=== PATIENT | male | born 1960 ===

== ENCOUNTER 2017-08-19 08:24 | Day surgery (SDC) | payer SELFPAY ==
[2017-08-19] MEDS ORDERED: Lactated Ringer's 500 ML IV ONE (10:07)
[2017-08-19] MEDS ORDERED: Midazolam 2 MG/2 ML VIAL ONE (10:40)
[2017-08-19] MEDS ORDERED: Propofol 10 mg/ml Inj (20 ML) ONE (10:41)
[2017-08-19 11:21] VITALS: BP 115/85; PULSE 71; RESP 17; TEMP 97; O2SAT 100
== END 2017-08-19 11:29 | disposition home or self-care (01) ==
LOC: H.ENDO 08:24
PROVIDERS: ATTEND Internal Medicine Gastroenterology
DX: Z12.11 Encounter for screening for malignant neoplasm of colon (principal); E11.9 Type 2 diabetes mellitus without complications; E03.9 Hypothyroidism, unspecified; E78.5 Hyperlipidemia, unspecified; I10 Essential (primary) hypertension; K64.8 Other hemorrhoids
CPT/HCPCS: 45378; J2250; J2704; J7120

== ENCOUNTER 2018-04-12 10:16 | Inpatient (IN) | payer SELFPAY ==
[2018-04-12 10:44] VITALS: BMI 26.9
[2018-04-12] MEDS ORDERED: Sodium Chloride 0.9% 1,000 ML IV STA (13:08)
[2018-04-12] MEDS ORDERED: Famotidine 20mg/50ml Premix IVPB STA (13:08)
[2018-04-12] MEDS ORDERED: Famotidine 20mg/50ml 20 MG/50 ML BAG IVPB ONE (13:25)
[2018-04-12] MEDS ORDERED: Dextrose 50% SYRINGE Inj (50 ml) ONE (13:30)
[2018-04-12 14:07] LABS: BASO % 0.3 % (0.0-2.0); EOS # 0.1 K/uL (0.0-0.7); HEMOGLOBIN 16.9 g/dL (12.0-18.0); LYMPH # 1.2 K/uL (1.0-4.3); LYMPH % 20.3 % (20.0-40.0); MEAN CELL VOLUME 85.2 fl (80.0-94.0); MEAN CORPUSCULAR HEMOGLOBIN 29.8 pg (27.0-31.0); MEAN PLATELET VOLUME 7.6 fl (7.2-11.7); NEUT # 3.8 K/uL (1.8-7.0); NEUT % 62.4 % (50.0-75.0); NRBC % 0.2 % (0.0-0.0); RBC 5.68 Mil/uL (4.40-5.90)
[2018-04-12 14:11] LABS: PARTIAL THROMBOPLASTIN TIME 25.1 Seconds (25.6-37.1); PROTHROMBIN TIME 11.6 Seconds (9.8-13.1)
[2018-04-12 14:14] LABS: ALB/GLOB RATIO 1.1 (1.0-2.1); ALBUMIN 4.4 g/dL (3.5-5.0); ALT/SGPT 47 U/L (21-72); AST/SGOT 35 U/L (17-59); BLOOD UREA NITROGEN 16 mg/dl (9-20); CALCIUM 9.4 mg/dL (8.4-10.2); GFR AFRICAN-AMERICAN > 60; GFR NON-AFRICAN AMERICAN > 60; LIPASE 81 U/L (23-300)
[2018-04-12 14:57] LABS: URINE BILIRUBIN NEGATIVE (NEGATIVE); URINE BLOOD NEGATIVE (NEGATIVE); URINE CLARITY SLIGHTY-CLOUDY (Clear); URINE COLOR YELLOW (YELLOW); URINE GLUCOSE (UA) NEG (Normal); URINE HYALINE CAST >20 /hpf (0-2); URINE LEUKOCYTE ESTERASE NEG Leu/uL (Negative); URINE PROTEIN 30 mg/dL (NEGATIVE); URINE UROBILINOGEN 0.2-1.0 mg/dL (0.2-1.0)
[2018-04-12] MEDS ORDERED: Iohexol 300 100 ML IJ ONE (16:07)
[2018-04-12] MEDS ORDERED: Sodium Chloride 0.9% 50 ML IV ONE (16:07)
--- NOTE | 2018-04-12 16:28 | ED PDOC ---
HPI:Nausea, Vomiting, Diarrhea Time Seen by Provider: 04/12/18 12:47 Chief Complaint (Nursing): GI Problem Chief Complaint (Provider): Abdominal Pain History Per: Patient History/Exam Limitations: no limitations Onset/Duration Of Symptoms: Days (x3 days) Current Symptoms Are (Timing): Still Present Have you had recent travel within the past 21 days to any of the following countries: [place], [place], [place] or [place]?: Yes Context: Travel Associated Symptoms: Vomiting, Diarrhea. denies: Fever, Chest Pain Additional Complaint(s): 57 y/o male with a history of diabetes presents to the ED for abdominal pain. Patient states he recently returned from a trip in [facility]. While in [facility] patient had GI issues including vomiting and diarrhea for 4 days which cleared up on it's own. He states 3 days ago the symptoms returned prompting ED visit associated with mild upper abdominal pain. Denies any fever, chest pain, or SOB. PMD: none provided Past Medical History Reviewed: Historical Data, Nursing Documentation, Vital Signs Vital Signs: Last Vital Signs Temp 98 F 04/12/18 10:42 Pulse 107 H 04/12/18 10:42 Resp BP 103/72 04/12/18 10:42 Pulse Ox 98 04/12/18 10:42 - Medical History PMH: Diabetes (controlled type II insulin dependant), Hypothyroidism - Surgical History Surgical History: No Surg Hx - Family History Family History: States: No Known Family Hx - Social History Current smoker - smoking cessation education provided: No Ex-Smoker (has not smoked in the last 12 months): No Alcohol: None Drugs: Denies - Home Medications Home Medications: Ambulatory Orders Medication Instructions Recorded Unobtainable 08/19/17 - Allergies Allergies/Adverse Reactions: Allergies Allergy/AdvReac Type Severity Reaction Status Date / Time No Known Allergies Allergy Verified 08/19/17 10:04 Review of Systems ROS Statement: Except As Marked, All Systems Reviewed And Found Negative Constitutional: Negative for: Fever Cardiovascular: Negative for: Chest Pain Respiratory: Negative for: Shortness of Breath Gastrointestinal: Positive for: Vomiting, Abdominal Pain, Diarrhea Physical Exam - Reviewed Nursing Documentation Reviewed: Yes Vital Signs Reviewed: Yes - Physical Exam Appears: Positive for: Non-toxic, No Acute Distress Head Exam: Positive for: ATRAUMATIC, NORMAL INSPECTION, NORMOCEPHALIC Skin: Positive for: Normal Color Eye Exam: Positive for: EOMI, Normal appearance, PERRL Neck: Positive for: Normal Cardiovascular/Chest: Positive for: Regular Rate, Rhythm. Negative for: Murmur Respiratory: Positive for: Normal Breath Sounds. Negative for: Respiratory Distress Gastrointestinal/Abdominal: Positive for: Normal Exam, Soft, Tenderness ( epigastric area). Negative for: Guarding, Rebound Neurologic/Psych: Positive for: Alert, Oriented (x3) - Laboratory Results Result Diagrams: 04/12/18 13:50 04/12/18 13:50 - ECG O2 Sat by Pulse Oximetry: 98 (RA) Pulse Ox Interpretation: Normal Medical Decision Making Medical Decision Making: Time: 10:42 Impression: Gastroenteritis, colitis, or infectious diarrhea Initial Plan: * CAT Scan Abd/Pelvis IV contrast * EKG * UDip * Famotidine 20 mg IVPB * IV Fluids * Zofran 4 mg IV 16:58 Book a senior vice president and chief information officer consult for patient. Scribe Attestation: Documented by Sarah Porras acting as a scribe Viktoria Harp MD. MD Lucia Attestation: All medical record entries made by the Scribe were at my direction and personally dictated by me. I have reviewed the chart and agree that the record accurately reflects my personal performance of the history, physical exam, medical decision making, and the department course for this patient. I have also personally directed, reviewed, and agree with the discharge instructions and disposition. Disposition - Disposition
--- NOTE | 2018-04-12 16:46 | CT ---
PROCEDURE: CT Abdomen and Pelvis with contrast HISTORY: Epigastric pain, v/d COMPARISON: None. TECHNIQUE: CT scan of the abdomen and pelvis was performed after administration of intravenous contrast. Oral contrast was not administered. Coronal and sagittal reformatted images were obtained. Contrast dose: 95 mL Omnipaque 300 Radiation dose: Total exam DLP = 678.82 mGy-cm. This CT exam was performed using one or more of the following dose reduction techniques: Automated exposure control, adjustment of the mA and/or kV according to patient size, and/or use of iterative reconstruction technique. FINDINGS: LOWER THORAX: There is subsegmental atelectasis in the lung bases. LIVER: Normal in size with diffuse fatty infiltration. No gross lesion or ductal dilatation. GALLBLADDER AND BILE DUCTS: No calcified gallstones. PANCREAS: Normal in size with homogeneous enhancement. No gross lesion or ductal dilatation. SPLEEN: Normal in size and appearance. ADRENALS: No discrete nodule. KIDNEYS AND URETERS: Normal in size with homogeneous enhancement. No hydronephrosis. No solid mass. VASCULATURE: No aortic aneurysm. BOWEL: The proximal and distal small bowel loops are normal in caliber. There is mild dilatation of fluid-filled mid small bowel loops with fecalization of small bowel contents. There is also fluid in the colon. No bowel obstruction. APPENDIX: Normal appendix. PERITONEUM: Unremarkable. No free fluid. No free air. LYMPH NODES: No enlarged lymph nodes. BLADDER: Grossly normal in appearance. REPRODUCTIVE: Unremarkable. BONES: No acute fracture. Within normal limits for the patient's age. OTHER FINDINGS: None. IMPRESSION: 1. Mild dilatation of fluid-filled mid small bowel loops with fecalization of small bowel contents which could be related to nonspecific enteritis or partial small bowel obstruction. Follow-up is advised. 2. Fluid in the colon which may represent nonspecific colitis. No bowel obstruction.
[2018-04-12] MEDS ORDERED: metroNIDAZOLE 500mg/100ml NS 100 ML IV STA (16:55)
[2018-04-12] MEDS ORDERED: Ciprofloxacin 400mg/200ml D5W 400 MG/200 ML BAG IV STA (16:55)
--- NOTE | 2018-04-12 17:42 | CP.PCM.CON ---
History of Present Illness - History of Present Illness History of Present Illness: General Surgery Consult Re: pSBO vs gastroenteritis/colitis HPI: 57M presented to ED with epigastric abd pain associated with N/V/D for 3 days. He reports he ate [place] food 3 days ago, in addition, he recently returned from a trip in [facility] 7 days ago and while there, he had nausea, vomiting and diarrhea for 4 days which cleared up on it's own. + Bloating/gas in abdomen. Denies fever, chills, chest pain, SOB, dehydration, hematemesis, melena, hematochezia, dysuria. At time of exam he had no abd pain. PMH: Hypothyroid, DM PSH: Denies SH: No tobacco, EtOH, or drug use FH: Non-contributory All: PCN (Rash as child) Meds: See MAR Review of Systems - Review of Systems All systems: reviewed and no additional remarkable complaints except (as per HPI ) Past Patient History - Past Medical History & Family History Past Medical History?: Yes - Past Social History Alcohol: None Drugs: Denies - CARDIAC Hx Cardiac Disorders: No - ENDOCRINE/METABOLIC Hx Hypothyroidism: Yes - PSYCHIATRIC Hx Substance Use: No - SURGICAL HISTORY Hx Surgeries: Yes - ANESTHESIA Hx Anesthesia: Yes Hx Anesthesia Reactions: No Hx Malignant Hyperthermia: No Meds Allergies/Adverse Reactions: Allergies Allergy/AdvReac Type Severity Reaction Status Date / Time No Known Allergies Allergy Verified 08/19/17 10:04 - Medications Medications: Current Medications Sodium Chloride (Sodium Chloride 0.9%) 1,000 mls @ 125 mls/hr IV .Q8H STA Stop: 04/12/18 21:07 Last Admin: 04/12/18 13:42 Dose: 125 mls/hr Ciprofloxacin (Cipro 400mg/200ml Dsw) 400 mg in 200 mls @ 200 mls/hr IV STAT STA PRN Reason: Protocol Stop: 04/12/18 17:54 Last Admin: 04/12/18 17:17 Dose: 200 mls/hr Metronidazole (Flagyl 500mg/100ml Ns) 100 mls @ 100 mls/hr IV STAT STA PRN Reason: Protocol Stop: 04/12/18 17:54 Physical Exam - Constitutional Appears: Non-toxic, No Acute Distress - Head Exam Head Exam: ATRAUMATIC, NORMOCEPHALIC - Eye Exam Eye Exam: EOMI. absent: Scleral icterus - ENT Exam ENT Exam: Mucous Membranes Dry Additional comments: trachea midline - Neck Exam Neck exam: Positive for: Full Rom. Negative for: Tenderness - Respiratory Exam Respiratory Exam: NORMAL BREATHING PATTERN. absent: Respiratory Distress - Cardiovascular Exam Cardiovascular Exam: Tachycardia, +S1, +S2 - GI/Abdominal Exam GI & Abdominal Exam: Soft. absent: Distended, Firm, Guarding, Rigid, Tenderness - Rectal Exam Rectal Exam: Deferred - Extremities Exam Extremities exam: Positive for: normal capillary refill. Negative for: calf tenderness - Back Exam Back exam: absent: CVA tenderness (L), CVA tenderness (R) - Neurological Exam Neurological exam: Alert, Oriented x3 - Skin Skin Exam: Dry, Warm Results - Vital Signs Recent Vital Signs: Last Vital Signs Temp 98 F 04/12/18 10:42 Pulse 107 H 04/12/18 10:42 Resp BP 103/72 04/12/18 10:42 Pulse Ox 98 04/12/18 17:06 - Labs Result Diagrams: 04/12/18 13:50 04/12/18 13:50 Labs: Laboratory Results - last 24 hr 04/12/18 04/12/18 04/12/18 13:26 13:28 13:50 WBC 6.0 RBC 5.68 Hgb 16.9 D Hct 48.4 MCV 85.2 D MCH 29.8 MCHC 35.0 RDW 14.0 Plt Count 278 MPV 7.6 Neut % (Auto) 62.4 Lymph % (Auto) 20.3 [place] % (Auto) 16.0 H Eos % (Auto) 1.0 Baso % (Auto) 0.3 Neut # (Auto) 3.8 Lymph # (Auto) 1.2 [place] # (Auto) 1.0 H Eos # (Auto) 0.1 Baso # (Auto) 0.0 PT INR APTT Sodium Potassium Chloride Carbon Dioxide Anion Gap BUN Creatinine Est GFR ( Amer) Est GFR (Non-Af Amer) POC Glucose (mg/dL) 47 L 51 L Random Glucose Calcium Total Bilirubin AST ALT Alkaline Phosphatase Total Protein Albumin Globulin Albumin/Globulin Ratio Lipase Urine Color Urine Clarity Urine pH Ur Specific [place] Urine Protein Urine Glucose (UA) Urine Ketones Urine Blood Urine Nitrate Urine Bilirubin Urine Urobilinogen Ur Leukocyte Esterase Urine RBC (Auto) Urine Microscopic WBC Hyaline Casts 04/12/18 04/12/18 04/12/18 13:50 13:50 14:46 WBC RBC Hgb Hct MCV MCH MCHC RDW Plt Count MPV Neut % (Auto) Lymph % (Auto) [place] % (Auto) Eos % (Auto) Baso % (Auto) Neut # (Auto) Lymph # (Auto) [place] # (Auto) Eos # (Auto) Baso # (Auto) PT 11.6 INR 1.0 APTT 25.1 L Sodium 141 Potassium 4.0 Chloride 99 Carbon Dioxide 22 Anion Gap 24 H BUN 16 Creatinine 0.8 Est GFR ( Amer) > 60 Est GFR (Non-Af Amer) > 60 POC Glucose (mg/dL) Random Glucose 65 L Calcium 9.4 Total Bilirubin 0.5 AST 35 ALT 47 Alkaline Phosphatase 74 Total Protein 8.5 H Albumin 4.4 Globulin 4.1 H Albumin/Globulin Ratio 1.1 Lipase 81 Urine Color Yellow Urine Clarity Slighty-cloudy Urine pH 5.0 Ur Specific [place] 1.020 Urine Protein 30 Urine Glucose (UA) Neg Urine Ketones Negative Urine Blood Negative Urine Nitrate Negative Urine Bilirubin Negative Urine Urobilinogen 0.2-1.0 Ur Leukocyte Esterase Neg Urine RBC (Auto) 4 H Urine Microscopic WBC 3 Hyaline Casts >20 H - Imaging and Cardiology CT scan - abdomen Status: Image reviewed by me, Report reviewed by me Assessment & Plan - Assessment and Plan (Free Text) Assessment: 57M with gastroenteritis Plan: IVF resuscitation Serial abd exams No surgical intervention Diet as tolerated D/W Dr. Cui for Dr. Yohannes Urias PGY4
[2018-04-12] MEDS ORDERED: Glucagon Recombinant 1 mg Inj IM PRN (18:32)
[2018-04-12] MEDS ORDERED: Dextrose 50% SYRINGE Inj (50 ml) IV PRN (18:32)
[2018-04-12] MEDS ORDERED: Pneumococcal 23-Valent Vaccine IM ONE (19:58)
--- NOTE | 2018-04-12 20:33 | CP.PCM.HP ---
History of Present Illness - History of Present Illness History of Present Illness: 57 YO M w/ PMH of DM, hypothyroidism has been having epigastric pain with nausea and diarrhea over the last 4 days. Patient has had nausea but did not vomit. Symptoms all began after he had [place] food 4 days ago. Has been having 4-5 episodes of non bloody diarrhea a day. States he has has decreased appetite, has only had soup today. Patient also just returned from [facility] 7 days ago where he had similar symptoms and had resolved in 4 days. Denies any fever, chills, chest pain, SOB. PMH: DM, Hypothyroidism PSH: None Allergy: Penicillin (Rash) FH: DM SH: Denies smoking or illicit drug use FULL CODE Present on Admission - Present on Admission Any Indicators Present on Admission: Yes History of Uncontrolled Diabetes: Yes Past Patient History - Past Medical History & Family History Past Medical History?: Yes - Past Social History Smoking Status: Never Smoked - CARDIAC Hx Cardiac Disorders: No - ENDOCRINE/METABOLIC Hx Diabetes Mellitus Type 2: Yes Hx Hypothyroidism: Yes - MUSCULOSKELETAL/RHEUMATOLOGICAL Hx Falls: No - PSYCHIATRIC Hx Substance Use: No - SURGICAL HISTORY Hx Surgeries: Yes - ANESTHESIA Hx Anesthesia: Yes Hx Anesthesia Reactions: No Hx Malignant Hyperthermia: No Meds Allergies/Adverse Reactions: Allergies Allergy/AdvReac Type Severity Reaction Status Date / Time Pencillin Allergy RASH Uncoded 04/12/18 22:16 Physical Exam - Constitutional Appears: No Acute Distress - Head Exam Head Exam: NORMAL INSPECTION - Eye Exam Eye Exam: Normal appearance Pupil Exam: NORMAL ACCOMODATION - ENT Exam ENT Exam: Mucous Membranes Moist, Normal Exam - Respiratory Exam Respiratory Exam: Clear to Auscultation Bilateral, NORMAL BREATHING PATTERN. absent: Rhonchi, Wheezes - Cardiovascular Exam Cardiovascular Exam: REGULAR RHYTHM, +S1, +S2 - GI/Abdominal Exam GI & Abdominal Exam: Normal Bowel Sounds, Soft. absent: Tenderness - Extremities Exam Extremities exam: Negative for: calf tenderness - Neurological Exam Neurological exam: Alert, CN II-XII Intact, Oriented x3 - Skin Skin Exam: Normal Color, Warm Results - Vital Signs Recent Vital Signs: Last Vital Signs Temp 98.3 F 04/12/18 18:47 Pulse 71 04/12/18 18:47 Resp 14 04/12/18 19:47 BP 133/84 04/12/18 18:47 Pulse Ox 99 04/12/18 18:47 - Labs Result Diagrams: 04/12/18 13:50 04/12/18 13:50 Labs: Laboratory Results - last 24 hr 04/12/18 04/12/18 04/12/18 13:26 13:28 13:50 WBC 6.0 RBC 5.68 Hgb 16.9 D Hct 48.4 MCV 85.2 D MCH 29.8 MCHC 35.0 RDW 14.0 Plt Count 278 MPV 7.6 Neut % (Auto) 62.4 Lymph % (Auto) 20.3 [place] % (Auto) 16.0 H Eos % (Auto) 1.0 Baso % (Auto) 0.3 Neut # (Auto) 3.8 Lymph # (Auto) 1.2 [place] # (Auto) 1.0 H Eos # (Auto) 0.1 Baso # (Auto) 0.0 PT INR APTT Sodium Potassium Chloride Carbon Dioxide Anion Gap BUN Creatinine Est GFR ( Amer) Est GFR (Non-Af Amer) POC Glucose (mg/dL) 47 L 51 L Random Glucose Calcium Total Bilirubin AST ALT Alkaline Phosphatase Total Protein Albumin Globulin Albumin/Globulin Ratio Lipase Urine Color Urine Clarity Urine pH Ur Specific [place] Urine Protein Urine Glucose (UA) Urine Ketones Urine Blood Urine Nitrate Urine Bilirubin Urine Urobilinogen Ur Leukocyte Esterase Urine RBC (Auto) Urine Microscopic WBC Hyaline Casts 04/12/18 04/12/18 04/12/18 13:50 13:50 14:46 WBC RBC Hgb Hct MCV MCH MCHC RDW Plt Count MPV Neut % (Auto) Lymph % (Auto) [place] % (Auto) Eos % (Auto) Baso % (Auto) Neut # (Auto) Lymph # (Auto) [place] # (Auto) Eos # (Auto) Baso # (Auto) PT 11.6 INR 1.0 APTT 25.1 L Sodium 141 Potassium 4.0 Chloride 99 Carbon Dioxide 22 Anion Gap 24 H BUN 16 Creatinine 0.8 Est GFR ( Amer) > 60 Est GFR (Non-Af Amer) > 60 POC Glucose (mg/dL) Random Glucose 65 L Calcium 9.4 Total Bilirubin 0.5 AST 35 ALT 47 Alkaline Phosphatase 74 Total Protein 8.5 H Albumin 4.4 Globulin 4.1 H Albumin/Globulin Ratio 1.1 Lipase 81 Urine Color Yellow Urine Clarity Slighty-cloudy Urine pH 5.0 Ur Specific [place] 1.020 Urine Protein 30 Urine Glucose (UA) Neg Urine Ketones Negative Urine Blood Negative Urine Nitrate Negative Urine Bilirubin Negative Urine Urobilinogen 0.2-1.0 Ur Leukocyte Esterase Neg Urine RBC (Auto) 4 H Urine Microscopic WBC 3 Hyaline Casts >20 H Assessment & Plan - Assessment and Plan (Free Text) Assessment: 57 YO M w/ PMH of DM, Hypothyroidism presents with abdominal pain, nausea and diarrhea over the past 4 days 1) Abdominal pain most likely secondary to Collitis vs Eneritis - afebrile, no white count - Liquid diet - CT abdomen: Mild dilation of fluid filled mid small bowl loops with fecalization of small bowl contents which could be related to nonspecific enteritis or partial small bowl obstruction. Fluid in colon which may represent nonspecific colitis. - Surgery consulted:Case discussed with surgical training specialist. No surgical intervention indicated at this point: Not suspicious for SBO. - Continue with serial abdominal exams - Flagyl 500 Q8, Cipro 400 Q12 - Adv diet as tolerated 2) DM insulin dependent - Continue with metformin - Medium dose sliding scale - Hold home insulin: Since patient has poor PO intake - HBA1C: 12/2017: HBA1C: 9.9 3) Hypothyroidism: Continue with home meds 4) DVT prophylaxis - Lovenox
[2018-04-12] MEDS: Insulin Regular 100 units/ml SC SCH (22:05)
[2018-04-13] MEDS: metroNIDAZOLE 500mg/100ml NS 100 ML IVPB SCH ×3 (00:02→17:08)
[2018-04-13] MEDS: Levothyroxine 125 MCG TAB PO SCH (05:42)
[2018-04-13] MEDS: Ciprofloxacin 400mg/200ml D5W 400 MG/200 ML BAG IVPB SCH ×2 (08:25→21:22)
[2018-04-13] MEDS: Insulin Regular 100 units/ml SC SCH ×4 (08:29→22:54)
[2018-04-13] MEDS: Enoxaparin 40 mg Syringe SC SCH (08:30)
--- NOTE | 2018-04-13 09:04 | CP.PCM.PN ---
Subjective - Date & Time of Evaluation Date of Evaluation: 04/13/18 Time of Evaluation: 08:15 - Subjective Subjective: 57 y/o M seen and examined by bedside. Pt reports feeling better. Pt reports nausea, vomiting, chills and weakness have improved. Pt still experiencing diarrhea, watery and non-bloody. Pt afebrile and will start liquid diet for breakfast. Objective - Vital Signs/Intake and Output Vital Signs (last 24 hours): Temp Pulse Resp BP Pulse Ox 98.0 F 71 18 108/72 99 04/13/18 08:05 04/13/18 08:05 04/13/18 08:05 04/13/18 08:05 04/13/18 08:05 - Medications Medications: Current Medications Atorvastatin Calcium (Lipitor) 20 mg PO HS [facility] Last Admin: 04/12/18 21:22 Dose: 20 mg Dextrose (Dextrose 50% Inj) 0 ml IV STAT PRN; Protocol PRN Reason: Hypoglycemia Protocol Dextrose (Glutose 15) 0 gm PO ONCE PRN; Protocol PRN Reason: Hypoglycemia Protocol Enalapril Maleate (Vasotec) 10 mg PO [facility] Last Admin: 04/12/18 21:31 Dose: 10 mg Enoxaparin Sodium (Lovenox) 40 mg SC DAILY JUAN MANUEL PRN Reason: Protocol Last Admin: 04/13/18 08:30 Dose: 40 mg Glucagon (Glucagen Diagnostic Kit) 0 mg IM STAT PRN; Protocol PRN Reason: Hypoglycemia Protocol Ciprofloxacin (Cipro 400mg/200ml Dsw) 400 mg in 200 mls @ 200 mls/hr IVPB Q12 JUAN MANUEL PRN Reason: Protocol Last Admin: 04/13/18 08:25 Dose: 200 mls/hr Metronidazole (Flagyl 500mg/100ml Ns) 100 mls @ 100 mls/hr IVPB Q8 JUAN MANUEL PRN Reason: Protocol Last Admin: 04/13/18 08:27 Dose: 100 mls/hr Insulin Human Regular (Humulin R) 0 units SC ACHS JUAN MANUEL PRN Reason: Protocol Last Admin: 04/13/18 08:29 Dose: 2 units Levothyroxine Sodium (Synthroid) 125 mcg PO DAILY@0630 [facility] Last Admin: 04/13/18 05:42 Dose: 125 mcg - Labs Labs: 04/12/18 13:50 04/12/18 13:50 PT 11.6 Seconds (9.8-13.1) 04/12/18 13:50 INR 1.0 (0.9-1.2) 04/12/18 13:50 APTT 25.1 Seconds (25.6-37.1) L 04/12/18 13:50 - Constitutional Appears: No Acute Distress - Eye Exam Eye Exam: EOMI, Normal appearance - ENT Exam ENT Exam: Mucous Membranes Moist - Neck Exam Neck Exam: Full ROM. absent: Lymphadenopathy - Respiratory Exam Respiratory Exam: Decreased Breath Sounds, NORMAL BREATHING PATTERN. absent: Rales, Rhonchi, Wheezes - Cardiovascular Exam Cardiovascular Exam: REGULAR RHYTHM, +S1, +S2 - GI/Abdominal Exam GI & Abdominal Exam: Soft, Normal Bowel Sounds. absent: Distended, Guarding, Rigid, Tenderness, Rebound - Extremities Exam Extremities Exam: Full ROM, Normal Inspection - Neurological Exam Neurological Exam: Alert, Awake, Oriented x3 Assessment and Plan - Assessment and Plan (Free Text) Assessment: 57 y/o M with a PMHx of DM, Hypothyroidism presents with abdominal pain, nausea and diarrhea over the past 4 days -CT abdomen: Mild dilation of fluid filled mid small bowl loops with fecalization of small bowl contents which could be related to nonspecific enteritis or partial small bowl obstruction. Fluid in colon which may represent nonspecific colitis. Abdominal pain most likely secondary to Collitis vs Gastroeneritis -Afebrile, no white count, still having diarrhea. -Liquid diet for breakfast, progress to regular diet for lunch if tolerating liquids. -Surgery consult NO intervention at this moment. No suspicion for bowel obstruction. -Continue with serial abdominal exams -Continue with IV Flagyl 500 Q8 and Cipro 400 Q12 -Continue IV fluids as pt still has diarrhea. -Continue with serial abdomen exams. -F/U tomorrow labs. IDDM uncontrolled -On 12/30/17, HbA1C: 9.9-elevated -Hold home meds: Metformin -Hold home insulin: Since patient has poor PO intake -Medium dose sliding scale Hypothyroidism: -Continue with home meds DVT prophylaxis -Lovenox
--- NOTE | 2018-04-13 11:44 | CP.PCM.PN ---
<TimNaomi - Last Filed: 04/13/18 11:42> Subjective - Date & Time of Evaluation Date of Evaluation: 04/13/18 Time of Evaluation: 11:42 - Subjective Subjective: Surgery Pt seen and examined with Dr. Guerrero. Reports diarrhea. Denies fever, nausea, CP ,SOB. Pain controlled. Objective - Vital Signs/Intake and Output Vital Signs (last 24 hours): Temp Pulse Resp BP Pulse Ox 98.0 F 71 18 108/72 99 04/13/18 08:05 04/13/18 08:05 04/13/18 08:05 04/13/18 08:05 04/13/18 08:05 - Medications Medications: Current Medications Atorvastatin Calcium (Lipitor) 20 mg PO HS [facility] Last Admin: 04/12/18 21:22 Dose: 20 mg Dextrose (Dextrose 50% Inj) 0 ml IV STAT PRN; Protocol PRN Reason: Hypoglycemia Protocol Dextrose (Glutose 15) 0 gm PO ONCE PRN; Protocol PRN Reason: Hypoglycemia Protocol Enalapril Maleate (Vasotec) 10 mg PO HS [facility] Last Admin: 04/12/18 21:31 Dose: 10 mg Enoxaparin Sodium (Lovenox) 40 mg SC DAILY JUAN MANUEL PRN Reason: Protocol Last Admin: 04/13/18 08:30 Dose: 40 mg Glucagon (Glucagen Diagnostic Kit) 0 mg IM STAT PRN; Protocol PRN Reason: Hypoglycemia Protocol Ciprofloxacin (Cipro 400mg/200ml Dsw) 400 mg in 200 mls @ 200 mls/hr IVPB Q12 JUAN MANUEL PRN Reason: Protocol Last Admin: 04/13/18 08:25 Dose: 200 mls/hr Metronidazole (Flagyl 500mg/100ml Ns) 100 mls @ 100 mls/hr IVPB Q8 JUAN MANUEL PRN Reason: Protocol Last Admin: 04/13/18 08:27 Dose: 100 mls/hr Insulin Human Regular (Humulin R) 0 units SC ACHS JUAN MANUEL PRN Reason: Protocol Last Admin: 04/13/18 08:29 Dose: 2 units Levothyroxine Sodium (Synthroid) 125 mcg PO DAILY@0630 [facility] Last Admin: 04/13/18 05:42 Dose: 125 mcg - Labs Labs: 04/12/18 13:50 04/12/18 13:50 PT 11.6 Seconds (9.8-13.1) 04/12/18 13:50 INR 1.0 (0.9-1.2) 04/12/18 13:50 APTT 25.1 Seconds (25.6-37.1) L 04/12/18 13:50 - Constitutional Appears: No Acute Distress - Head Exam Head Exam: ATRAUMATIC, NORMAL INSPECTION, NORMOCEPHALIC - Eye Exam Eye Exam: EOMI, Normal appearance, PERRL Pupil Exam: NORMAL ACCOMODATION, PERRL - ENT Exam ENT Exam: Mucous Membranes Moist, Normal Exam - Neck Exam Neck Exam: Full ROM, Normal Inspection. absent: Lymphadenopathy - Respiratory Exam Respiratory Exam: Clear to Ausculation Bilateral, NORMAL BREATHING PATTERN - Cardiovascular Exam Cardiovascular Exam: REGULAR RHYTHM, +S1, +S2. absent: Murmur - GI/Abdominal Exam GI & Abdominal Exam: Soft, Normal Bowel Sounds. absent: Distended, Tenderness - Extremities Exam Extremities Exam: Full ROM, Normal Capillary Refill, Normal Inspection. absent : Joint Swelling, Pedal Edema - Back Exam Back Exam: NORMAL INSPECTION - Neurological Exam Neurological Exam: Alert, Awake, CN II-XII Intact, Normal Gait, Oriented x3 - Psychiatric Exam Psychiatric exam: Normal Affect, Normal Mood - Skin Skin Exam: Dry, Intact, Normal Color, Warm Assessment and Plan - Assessment and Plan (Free Text) Assessment: 57M with gastroenteritis unlikely SBO. Pt has BM. Plan: IVF resuscitation Advance diet as tolerated. Serial abd exams No surgical intervention Diet as tolerated D/W Dr. Guerrero for Dr. Sheffield <Dean Guerrero - Last Filed: 04/13/18 11:48> Subjective - Subjective Subjective: Patient was seen and examined at the bedside. Agree with resident's note above. Objective - Vital Signs/Intake and Output Vital Signs (last 24 hours): Temp Pulse Resp BP Pulse Ox 98.0 F 71 18 108/72 99 04/13/18 08:05 04/13/18 08:05 04/13/18 08:05 04/13/18 08:05 04/13/18 08:05 - Medications Medications: Current Medications Atorvastatin Calcium (Lipitor) 20 mg PO HS [facility] Last Admin: 04/12/18 21:22 Dose: 20 mg Dextrose (Dextrose 50% Inj) 0 ml IV STAT PRN; Protocol PRN Reason: Hypoglycemia Protocol Dextrose (Glutose 15) 0 gm PO ONCE PRN; Protocol PRN Reason: Hypoglycemia Protocol Enalapril Maleate (Vasotec) 10 mg PO HS [facility] Last Admin: 04/12/18 21:31 Dose: 10 mg Enoxaparin Sodium (Lovenox) 40 mg SC DAILY JUAN MANUEL PRN Reason: Protocol Last Admin: 04/13/18 08:30 Dose: 40 mg Glucagon (Glucagen Diagnostic Kit) 0 mg IM STAT PRN; Protocol PRN Reason: Hypoglycemia Protocol Ciprofloxacin (Cipro 400mg/200ml Dsw) 400 mg in 200 mls @ 200 mls/hr IVPB Q12 JUAN MANUEL PRN Reason: Protocol Last Admin: 04/13/18 08:25 Dose: 200 mls/hr Metronidazole (Flagyl 500mg/100ml Ns) 100 mls @ 100 mls/hr IVPB Q8 JUAN MANUEL PRN Reason: Protocol Last Admin: 04/13/18 08:27 Dose: 100 mls/hr Insulin Human Regular (Humulin R) 0 units SC ACHS JUAN MANUEL PRN Reason: Protocol Last Admin: 04/13/18 08:29 Dose: 2 units Levothyroxine Sodium (Synthroid) 125 mcg PO DAILY@0630 [facility] Last Admin: 04/13/18 05:42 Dose: 125 mcg - Labs Labs: 04/12/18 13:50 04/12/18 13:50 PT 11.6 Seconds (9.8-13.1) 04/12/18 13:50 INR 1.0 (0.9-1.2) 04/12/18 13:50 APTT 25.1 Seconds (25.6-37.1) L 04/12/18 13:50 Assessment and Plan - Assessment and Plan (Free Text) Plan: - repeat labs in am - No general surgery intervention at present time - Advance diet as tolerated - Will follow
--- NOTE | 2018-04-13 17:25 | CARD ---
APPROVED REPORT EKG Measurement Heart [id number] <Conclusion> Normal sinus rhythm Left axis deviation Inferior infarct, age undetermined Abnormal ECG
[2018-04-13] MEDS ORDERED: INSULIN ASPART PROTAMINE SC SCH (18:00)
[2018-04-13] MEDS ORDERED: INSULIN ASPART SC SCH (18:00)
[2018-04-13] MEDS ORDERED: Insulin Lispro Mix 75/25 100 units/ml (HumaLog) 10ml SC SCH (18:00)
[2018-04-13 23:59] VITALS: RESP 20
[2018-04-14] MEDS: metroNIDAZOLE 500mg/100ml NS 100 ML IVPB SCH ×2 (00:26→08:46)
[2018-04-14] MEDS: Insulin Regular 100 units/ml SC SCH (07:24)
[2018-04-14] MEDS: Levothyroxine 125 MCG TAB PO SCH (07:26)
[2018-04-14 07:44] LABS: HEMOGLOBIN 14.1 g/dL (12.0-18.0); MEAN CELL VOLUME 85.9 fl (80.0-94.0); MEAN CORPUSCULAR HEMOGLOBIN 29.8 pg (27.0-31.0); MEAN CORPUSCULAR HGB CONC 34.6 g/dL (33.0-37.0); RBC 4.73 Mil/uL (4.40-5.90); RED CELL DISTRIBUTION WIDTH 13.9 % (11.5-14.5); WHITE BLOOD COUNT 5.1 K/uL (4.8-10.8)
[2018-04-14 07:45] LABS: BLOOD UREA NITROGEN 9 mg/dl (9-20); CALCIUM 8.5 mg/dL (8.4-10.2); GFR AFRICAN-AMERICAN > 60; GFR NON-AFRICAN AMERICAN > 60
[2018-04-14 08:05] VITALS: BP 124/79; PULSE 64; TEMP 97.4; O2SAT 99
[2018-04-14] MEDS: Ciprofloxacin 400mg/200ml D5W 400 MG/200 ML BAG IVPB SCH (08:46)
[2018-04-14] MEDS: Enoxaparin 40 mg Syringe SC SCH (08:47)
--- NOTE | 2018-04-14 08:54 | CP.PCM.PN ---
Subjective - Date & Time of Evaluation Date of Evaluation: 04/14/18 Time of Evaluation: 07:00 - Subjective Subjective: General Surgery Pt seen and examined. NAEO. Feeling good, +BM/flatus. No complaints, would like to go home. Objective - Vital Signs/Intake and Output Vital Signs (last 24 hours): Temp Pulse Resp BP Pulse Ox 97.4 F L 64 20 124/79 99 04/14/18 08:04 04/14/18 08:04 04/14/18 08:04 04/14/18 08:04 04/14/18 08:04 - Medications Medications: Current Medications Atorvastatin Calcium (Lipitor) 20 mg PO HS [facility] Last Admin: 04/13/18 21:25 Dose: 20 mg Dextrose (Dextrose 50% Inj) 0 ml IV STAT PRN; Protocol PRN Reason: Hypoglycemia Protocol Dextrose (Glutose 15) 0 gm PO ONCE PRN; Protocol PRN Reason: Hypoglycemia Protocol Enalapril Maleate (Vasotec) 10 mg PO HS [facility] Last Admin: 04/13/18 21:24 Dose: 10 mg Enoxaparin Sodium (Lovenox) 40 mg SC DAILY JUAN MANUEL PRN Reason: Protocol Last Admin: 04/14/18 08:47 Dose: 40 mg Glucagon (Glucagen Diagnostic Kit) 0 mg IM STAT PRN; Protocol PRN Reason: Hypoglycemia Protocol Ciprofloxacin (Cipro 400mg/200ml Dsw) 400 mg in 200 mls @ 200 mls/hr IVPB Q12 JUAN MANUEL PRN Reason: Protocol Last Admin: 04/14/18 08:46 Dose: 200 mls/hr Metronidazole (Flagyl 500mg/100ml Ns) 100 mls @ 100 mls/hr IVPB Q8 JUAN MANUEL PRN Reason: Protocol Last Admin: 04/14/18 08:46 Dose: 100 mls/hr Insulin Human Regular (Humulin R) 0 units SC ACHS JUAN MANUEL PRN Reason: Protocol Last Admin: 04/14/18 07:24 Dose: 2 units Insulin Lispro Protam/Lispro Human (Humalog Mix 75/25) 27 units SC QPM [facility] Last Admin: 04/13/18 19:30 Dose: 27 units Insulin Lispro Protam/Lispro Human (Humalog Mix 75/25) 25 units SC QAM [facility] Last Admin: 04/14/18 08:46 Dose: 25 units Levothyroxine Sodium (Synthroid) 125 mcg PO DAILY@0630 JUAN MANUEL Last Admin: 04/14/18 07:26 Dose: 125 mcg - Labs Labs: 04/14/18 05:30 04/14/18 05:30 PT 11.6 Seconds (9.8-13.1) 04/12/18 13:50 INR 1.0 (0.9-1.2) 04/12/18 13:50 APTT 25.1 Seconds (25.6-37.1) L 04/12/18 13:50 - Constitutional Appears: Non-toxic, No Acute Distress - Head Exam Head Exam: ATRAUMATIC, NORMOCEPHALIC - Eye Exam Eye Exam: EOMI, Scleral icterus - Respiratory Exam Respiratory Exam: NORMAL BREATHING PATTERN. absent: Respiratory Distress - Cardiovascular Exam Cardiovascular Exam: RRR, +S1, +S2 - GI/Abdominal Exam GI & Abdominal Exam: Soft. absent: Distended, Firm, Guarding, Rigid, Tenderness , Rebound - Neurological Exam Neurological Exam: Alert, Awake, Oriented x3 - Skin Skin Exam: Dry, Warm Assessment and Plan - Assessment and Plan (Free Text) Assessment: 57M with gastroenteritis Plan: No surgical intervention required, ok for DC from a surgical standpoint. Will sign off. Please reconsult as needed D/W Dr. Yolanda Urias PGY4
[2018-04-14] MEDS ORDERED: Insulin Lispro Mix 75/25 100 units/ml (HumaLog) 10ml SC SCH (09:00)
[2018-04-14] MEDS ORDERED: INSULIN ASPART PROT SC SCH (09:00)
[2018-04-14] MEDS ORDERED: INSULN ASP SC SCH (09:00)
--- NOTE | 2018-04-14 11:04 | CP.PCM.DIS ---
Provider - Provider Date of Admission: 04/12/18 16:58 Attending physician: Thuy Stallings MD Primary care physician: Omkar Marin at [facility] Consults: General Surgery: Gamal Bravo Time Spent in preparation of Discharge (in minutes): 25 Diagnosis - Discharge Diagnosis (1) Colitis Status: Acute Comment: -Pt stable d/c home with PO Ciprofloxacin and Metronidazole x 7 days. Hospital Course - Lab Results Lab Results: Most Recent Lab Values WBC 5.1 K/uL (4.8-10.8) 04/14/18 05:30 RBC 4.73 Mil/uL (4.40-5.90) 04/14/18 05:30 Hgb 14.1 g/dL (12.0-18.0) D 04/14/18 05:30 Hct 40.7 % (35.0-51.0) 04/14/18 05:30 MCV 85.9 fl (80.0-94.0) 04/14/18 05:30 MCH 29.8 pg (27.0-31.0) 04/14/18 05:30 MCHC 34.6 g/dL (33.0-37.0) 04/14/18 05:30 RDW 13.9 % (11.5-14.5) 04/14/18 05:30 Plt Count 234 K/uL (130-400) 04/14/18 05:30 MPV 7.6 fl (7.2-11.7) 04/12/18 13:50 Neut % (Auto) 62.4 % (50.0-75.0) 04/12/18 13:50 Lymph % (Auto) 20.3 % (20.0-40.0) 04/12/18 13:50 [place] % (Auto) 16.0 % (0.0-10.0) H 04/12/18 13:50 Eos % (Auto) 1.0 % (0.0-4.0) 04/12/18 13:50 Baso % (Auto) 0.3 % (0.0-2.0) 04/12/18 13:50 Neut # (Auto) 3.8 K/uL (1.8-7.0) 04/12/18 13:50 Lymph # (Auto) 1.2 K/uL (1.0-4.3) 04/12/18 13:50 [place] # (Auto) 1.0 K/uL (0.0-0.8) H 04/12/18 13:50 Eos # (Auto) 0.1 K/uL (0.0-0.7) 04/12/18 13:50 Baso # (Auto) 0.0 K/uL (0.0-0.2) 04/12/18 13:50 PT 11.6 Seconds (9.8-13.1) 04/12/18 13:50 INR 1.0 (0.9-1.2) 04/12/18 13:50 APTT 25.1 Seconds (25.6-37.1) L 04/12/18 13:50 Sodium 139 mmol/l (132-148) 04/14/18 05:30 Potassium 4.1 MMOL/L (3.6-5.0) 04/14/18 05:30 Chloride 102 mmol/L (98-107) 04/14/18 05:30 Carbon Dioxide 29 mmol/L (22-30) 04/14/18 05:30 Anion Gap 12 (10-20) 04/14/18 05:30 BUN 9 mg/dl (9-20) 04/14/18 05:30 Creatinine 0.7 mg/dl (0.8-1.5) L 04/14/18 05:30 Est GFR ( Amer) > 60 04/14/18 05:30 Est GFR (Non-Af Amer) > 60 04/14/18 05:30 POC Glucose (mg/dL) 170 mg/dL (65-110) H 04/14/18 10:41 Random Glucose 147 mg/dL (75-110) H 04/14/18 05:30 Calcium 8.5 mg/dL (8.4-10.2) 04/14/18 05:30 Total Bilirubin 0.5 mg/dl (0.2-1.3) 04/12/18 13:50 AST 35 U/L (17-59) 04/12/18 13:50 ALT 47 U/L (21-72) 04/12/18 13:50 Alkaline Phosphatase 74 U/L (38-126) 04/12/18 13:50 Total Protein 8.5 G/DL (6.3-8.2) H 04/12/18 13:50 Albumin 4.4 g/dL (3.5-5.0) 04/12/18 13:50 Globulin 4.1 gm/dL (2.2-3.9) H 04/12/18 13:50 Albumin/Globulin Ratio 1.1 (1.0-2.1) 04/12/18 13:50 Lipase 81 U/L (23-300) 04/12/18 13:50 Urine Color Yellow (YELLOW) 04/12/18 14:46 Urine Clarity Slighty-cloudy (Clear) 04/12/18 14:46 Urine pH 5.0 (5.0-8.0) 04/12/18 14:46 Ur Specific [place] 1.020 (1.003-1.030) 04/12/18 14:46 Urine Protein 30 mg/dL (NEGATIVE) 04/12/18 14:46 Urine Glucose (UA) Neg mg/dL (Normal) 04/12/18 14:46 Urine Ketones Negative mg/dL (NEGATIVE) 04/12/18 14:46 Urine Blood Negative (NEGATIVE) 04/12/18 14:46 Urine Nitrate Negative (NEGATIVE) 04/12/18 14:46 Urine Bilirubin Negative (NEGATIVE) 04/12/18 14:46 Urine Urobilinogen 0.2-1.0 mg/dL (0.2-1.0) 04/12/18 14:46 Ur Leukocyte Esterase Neg [place]/uL (Negative) 04/12/18 14:46 Urine RBC (Auto) 4 /hpf (0-3) H 04/12/18 14:46 Urine Microscopic WBC 3 /hpf (0-5) 04/12/18 14:46 Hyaline Casts >20 /hpf (0-2) H 04/12/18 14:46 - Hospital Course Hospital Course: 57 y/o M admitted due to 4 days Hx of non-bloody and diarrhea. Pt received IV Ciprofloxacin and Metronidazole. General Surgery evaluated patient and NO intervention was recommended. Pt stable and tolerating PO, discharged home with PO Ciprofloxacin and Metronidazole x 7 days. ->CT abdomen: Mild dilation of fluid filled mid small bowl loops with fecalization of small bowl contents which could be related to nonspecific enteritis or partial small bowl obstruction. Fluid in colon which may represent nonspecific colitis. - Date & Time of H&P Date of H&P: 04/12/18 Time of H&P: 20:33 Discharge Exam - Head Exam Head Exam: ATRAUMATIC, NORMOCEPHALIC - Eye Exam Eye Exam: Normal appearance - Respiratory Exam Respiratory Exam: Clear to PA & Lateral, UNREMARKABLE - Cardiovascular Exam Cardiovascular Exam: REGULAR RHYTHM, +S1, +S2 - GI/Abdominal Exam GI & Abdominal Exam: Normal Bowel Sounds, Soft. absent: Distended, Firm, Guarding, Rebound, Rigid, Tenderness - Extremities Exam Extremities exam: full ROM, normal inspection - Neurological Exam Neurological exam: Alert, Oriented x3 - Psychiatric Exam Psychiatric exam: Normal Affect, Normal Mood Discharge Plan - Discharge Medications Prescriptions: Ciprofloxacin [Cipro] 500 mg PO BID 15 Days tab metroNIDAZOLE [Flagyl] 500 mg PO Q8H 22 Days tab - Follow Up Plan Condition: GOOD Disposition: HOME/ ROUTINE Instructions: Acute Abdomen (Belly Pain), Adult (DC), Nausea and Vomiting, Adult (DC) Additional Instructions: -Follow up with primary MD within 1 week -Complete antibiotic therapy, Ciprofloxacin twice a day and Metronidazole 3x day for 7 days. Referrals: [facility] [Outside] Gamal Sheffield MD [Staff Provider] - Charly Whitten MD [Resident] -
--- NOTE | 2018-04-14 13:26 | CP.PCM.PN ---
Subjective - Date & Time of Evaluation Date of Evaluation: 04/14/18 Time of Evaluation: 11:00 - Subjective Subjective: General Surgery note: Pt seen and examined in bed. Pt with no complaints. (-) abdominal pain, (-)N/V /D/C PE: Gen: Pt sitting in NAD Skin: Warm and dry Cardio: s1s2 RRR Lungs: CTA bilaterally Abd: Soft NTND Extremities: (-) deformity A/P Gastroenteritis Resolved No surgical intervention indicated Pt discharged from surgery service. Case discussed with Surgical team Objective - Vital Signs/Intake and Output Vital Signs (last 24 hours): Temp Pulse Resp BP Pulse Ox 97.4 F L 64 20 124/79 99 04/14/18 08:04 04/14/18 08:04 04/14/18 08:04 04/14/18 08:04 04/14/18 08:04 - Labs Labs: 04/14/18 05:30 04/14/18 05:30 PT 11.6 Seconds (9.8-13.1) 04/12/18 13:50 INR 1.0 (0.9-1.2) 04/12/18 13:50 APTT 25.1 Seconds (25.6-37.1) L 04/12/18 13:50 Assessment and Plan - Assessment and Plan (Free Text) Assessment: see above
== END 2018-04-14 11:30 | disposition home or self-care (01) | DRG 813 ==
LOC: H.ER 10:16 → H.ERHOLD 16:58 → H.MEDSURG1 18:41
PROVIDERS: ADMIT Family Medicine Geriatric Medicine; ATTEND Family Medicine Geriatric Medicine
DX: K52.9 Noninfective gastroenteritis and colitis, unspecified (principal); E11.65 Type 2 diabetes mellitus with hyperglycemia; E03.9 Hypothyroidism, unspecified; Z79.4 Long term (current) use of insulin

== ENCOUNTER 2019-04-10 11:40 | Emergency (ER) | payer OTHER ==
[2019-04-10 12:00] VITALS: BMI 26.3
[2019-04-10 12:01] VITALS: RESP 18; O2SAT 99
[2019-04-10] MEDS ORDERED: Tdap Vaccine 0.5 ml Vial (10-64 yrs) IM ONE ×2 (12:28→12:45)
--- NOTE | 2019-04-10 12:52 | ED PDOC ---
Lower Extremity Pain/Injury Time Seen by Provider: 04/10/19 12:03 Chief Complaint (Nursing): Lower Extremity Problem/Injury Chief Complaint (Provider): Left Foot Redness/ Swelling History Per: Patient History/Exam Limitations: no limitations Onset/Duration Of Symptoms: Days (x2) Current Symptoms Are (Timing): Still Present Additional Complaint(s): 58 year old male with pmhx diabetes and hypertension presents to the ED for evaluation of left foot redness and swelling. Patient states that two days ago he was waking barefoot around his house when he felt a sharp pain in the bottom of his foot, but did not see anything on the floor besides some pieces of rice. He reports the next morning, he developed redness and swelling to the area which progressed to the top of the left foot today. Otherwise, denies pain, fever, chills, and pus drainage. Tetanus not up to date Past Medical History Reviewed: Historical Data, Nursing Documentation, Vital Signs Vital Signs: Last Vital Signs Temp 98.6 F 04/10/19 12:00 Pulse 87 04/10/19 12:00 Resp 18 04/10/19 12:00 BP 123/81 04/10/19 12:00 Pulse Ox 99 04/10/19 12:00 Primary Care Provider: Samson Andrews - Medical History PMH: Diabetes (controlled type II insulin dependant), HTN, Hypothyroidism - Surgical History Surgical History: No Surg Hx - Family History Family History: States: Unknown Family Hx - Social History Current smoker - smoking cessation education provided: No Alcohol: None Drugs: Denies - Immunization History Hx Tetanus Toxoid Vaccination: No (will update this visit) Hx Influenza Vaccination: Yes Hx Pneumococcal Vaccination: No - Home Medications Home Medications: Ambulatory Orders Medication Instructions Recorded Aspirin [Ecotrin] 81 mg PO DAILY 04/12/18 Cholecalciferol [Vitamin D 1000 IU] 1,000 unit PO DAILY 04/12/18 Enalapril Maleate [Vasotec] 10 mg PO HS 04/12/18 Insulin Aspart Prot/Insuln Asp 25 unit SC QAM 04/12/18 [Novolog Mix 70-30 Vial] Insulin Aspart Prot/Insuln Asp 27 unit SC QPM 04/12/18 [Novolog Mix 70-30 Vial] Levothyroxine [Synthroid] 125 mcg PO DAILY 04/12/18 MetFORMIN [glucoPHAGE] 1,000 mg PO BID 04/12/18 [place]-3 Fatty Acids/Fish Oil [Fish 1 cap PO DAILY 04/12/18 Oil 1,000 mg Capsule] Simvastatin [Zocor] 40 mg PO HS 04/12/18 Vitamin E [Vitamin E 400 Units Cap] 400 unit PO DAILY 04/12/18 Ciprofloxacin [Cipro] 500 mg PO BID 15 Days tab 04/14/18 metroNIDAZOLE [Flagyl] 500 mg PO Q8H 22 Days tab 04/14/18 Clindamycin [Cleocin] 450 mg PO TID 5 Days cap 04/10/19 - Allergies Allergies/Adverse Reactions: Allergies Allergy/AdvReac Type Severity Reaction Status Date / Time Pencillin Allergy RASH Uncoded 04/12/18 22:16 Review of Systems ROS Statement: Except As Marked, All Systems Reviewed And Found Negative Constitutional: Negative for: Fever, Chills Skin: Positive for: Other (left foot with swelling and redness, but no pus drainage or pain) Physical Exam - Reviewed Nursing Documentation Reviewed: Yes Vital Signs Reviewed: Yes - Physical Exam Appears: Positive for: No Acute Distress Pulses-Dorsalis Pedis (L): 2+ Extremity: Positive for: Normal ROM (with flexion and extension of left ankle, foot, and all five digits), Capillary Refill (less than 2 seconds), Swelling (positive eryrthema and swelling on dorsal asepct of left foot to ankle), Other (plantar aspect of left foot: puncture wound to left superior lateral aspect with no associated erythema or drainage; left great toe around the nail with dried blood and associated erythrema) Neurological/Psych: Positive for: Awake, Alert, Oriented (x3) - ECG O2 Sat by Pulse Oximetry: 99 (RA) Pulse Ox Interpretation: Normal Medical Decision Making Medical Decision Making: Time: 1228 Initial Impression: cellulitis left foot Initial Plan: --Tetanus booster --450mg PO Clindamycin --Bacitracin and sterile dressing applied to plantar aspect of left foot 1245 Patient advised to follow up with podiatry referral as soon as possible as source of infection may have been from cutting his nails vs puncture wound, and either way he will need close follow up secondary to diabetes history. Return instructions provided and patient stable for discharge with all questions answered. Scribe Attestation: Documented by Earnestine Thurston, acting as a scribe for Kayla Mckeon PA-C Provider Scribe Attestation: All medical record entries made by the Scribe were at my direction and personally dictated by me. I have reviewed the chart and agree that the record accurately reflects my personal performance of the history, physical exam, medical decision making, and the department course for this patient. I have also personally directed, reviewed, and agree with the discharge instructions and disposition. Disposition - Clinical Impression Clinical Impression: Cellulitis of foot, left - Disposition Referrals: [facility] [Outside] Podiatry Clinic [Outside] Disposition Time: 12:49 Condition: STABLE Additional Instructions: Follow up with Podiatry as soon as possible to establish care. Take full course of antibiotics. Return to ER if you develop fevers, worsening redness or pus drainage. Use Bacitracin on wound three times a day and keep it covered until it heals. Prescriptions: Clindamycin [Cleocin] 450 mg PO TID 5 Days cap Instructions: Cellulitis (Skin Infection), Adult (DC) Forms: [employer] (Vietnamese) Print Language: [id number]
[2019-04-10] MEDS ORDERED: Bacitracin 500 Units/gm Oint Foilpak UD ONE ×2 (12:55→13:03)
[2019-04-10 13:33] VITALS: BP 127/85; PULSE 85; TEMP 98.8
== END 2019-04-10 13:15 | disposition home or self-care (01) ==
LOC: H.ER 11:40
DX: L03.116 Cellulitis of left lower limb (principal); E11.9 Type 2 diabetes mellitus without complications; Z79.4 Long term (current) use of insulin